=== PATIENT | male | born 1985 | race Caucasian/White ===

== ENCOUNTER 2024-01-21 08:39 | Day surgery (SDC) | payer OTHER, SELFPAY ==
[2024-01-12 08:25] VITALS: BMI 26.9
[2024-01-21] VITALS (12 sets, daily range): BP systolic 91–137; BP diastolic 41–87; PULSE 68–90; RESP 11–18; TEMP 35.7–36.9; O2SAT 97–100; BMI 26.3
--- NOTE | 2024-01-21 | DI.RAD.S_ITS ---
PROCEDURE: XR HIP W PEL IF DONE BILAT 2V INDICATIONS: RT ANTERIOR HIP TECHNIQUE: AP pelvis and lateral view of the hip acquired. COMPARISON: [facility], CR, XR HIP W PEL IF DONE LT 2V, 01/21/2024, 13:43. FINDINGS: Bones: Patient is status post bilateral hip arthroplasty, with hardware components in expected positions. The hip joint appears congruent. The visualized bony structures appear intact. Soft tissues: Overlying postoperative changes are noted. No suspicious soft tissue densities. IMPRESSION: Postop changes from bilateral total hip arthroplasty with anatomic bilateral hip alignment. Dictated by: Omar Perez M.D. on 01/21/2024 at 16:09 Approved by: Omar Perez M.D. on 01/21/2024 at 16:10
--- NOTE | 2024-01-21 | DI.RAD.S_ITS ---
PROCEDURE: XR HIP W PEL IF DONE LT 2V INDICATIONS: LT HIP ANTERIOR TECHNIQUE: 5 intraoperative fluoroscopic view(s) of the hip acquired. COMPARISON: [facility], , XR HIP W PEL IF DONE LT 2V, 01/21/2024, 12:24. FINDINGS: Intraoperative fluoroscopic images shows left total hip arthroplasty in progress. There is also prior right total hip arthroplasty. IMPRESSION: Fluoro guidance was provided intraoperatively for left total hip arthroplasty. Dictated by: Omar Perez M.D. on 01/21/2024 at 16:08 Approved by: Omar Perez M.D. on 01/21/2024 at 16:09
--- NOTE | 2024-01-21 06:00 | DI.RAD.S_ITS ---
PROCEDURE: XR HIP W PEL IF DONE LT 2V INDICATIONS: Bilat. KIMBERLY TECHNIQUE: 5 intraoperative fluoroscopic images COMPARISON: None. FINDINGS: Five intraoperative fluoroscopic images demonstrate right total hip arthroplasty hardware. Limited views demonstrate anatomic alignment. Please see operative report for details. IMPRESSION: Five intraoperative fluoroscopic images demonstrate right total hip arthroplasty hardware. Please see operative report for details. Dictated by: Jolanta Cho M.D. on 01/21/2024 at 15:09 Approved by: Jolanta Cho M.D. on 01/21/2024 at 15:10
--- NOTE | 2024-01-21 09:48 | PM.PREOP ---
Pre-operative Note Interval Note History & Physical reviewed/Exam performed by Physician: Yes Changes to H&P: No
[2024-01-21] MEDS: LACTATED RINGERS 1,000 ML 42 ML IV ×3 (10:01→13:59)
[2024-01-21] MEDS: MELOXICAM 7.5 MG TABLET PO (10:01)
[2024-01-21] MEDS: ACETAMINOPHEN 325 MG TABLET 975 MG PO (10:01)
[2024-01-21] MEDS: VANCOMYCIN 1,000 MG/200 ML PIGGYBACK 200 MG IV (10:02)
--- NOTE | 2024-01-21 10:30 | SUR.OPER ---
Supine on padded [place] table with bilateral legs secured in padded positioning boots and suspended in positioning spars, operative leg in traction per surgeon. Head on one pillow. Arms secured on padded armboards <90 degrees abduction. Padded perineal post in place per surgeon.
[2024-01-21] MEDS: CEFAZOLIN 2 GM/100 ML PREMIX 100 ML IV ×2 (11:12→20:07)
[2024-01-21] MEDS: TRANEXAMIC ACID 1,000 MG VIAL 2000 MG INJ (11:36)
[2024-01-21] MEDS: ROPIVACAINE/EPI/CLONIDINE/KET 50 ML SYRINGE INJ (11:37)
[2024-01-21] MEDS: SODIUM CHLORIDE 0.9% IV (11:42)
[2024-01-21] MEDS: HEPARIN IV (11:42)
--- NOTE | 2024-01-21 14:37 | PM.OP.1 ---
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 Uncemented direct anterior right total hip arthroplasty 2. Uncemented direct anterior left total hip arthroplasty Same procedure as scheduled: Yes Surgeon: Solo Scanlon Candy Vendor: Alex Jacobson Anesthesia Type: General, Spinal and Local Operative Notes Estimated Blood Loss (mL): 450 Procedure in detail: Bilateral Uncemented Direct Anterior Total Hip Arthroplasty: Right Implants: Right Depuy Total Hip Arthroplasty: Depuy Gunter Gription size 60 cup? Depuy Actis femoral stem size 8 high offset? 36+ 8.5 ceramic femoral head? Left Implants: Left Depuy Total Hip Arthroplasty: Depuy Gunter Gription size 60 cup? Depuy Actis femoral stem size 8 high offset? 36+ 8.5 ceramic femoral head? Procedure Summary: This 38-year-old male patient presented with severe hip pain bilaterally. He had dysplastic changes bilaterally which were more severe on the right than the left. 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 He would previously undergone a core decompression on that side. He was counseled regarding the risks and benefits of elective total hip arthroplasty and wished to proceed. 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 In order to accommodate a simultaneous bilateral procedure cell Saver was utilized during today's procedure. He reported that his right hip was more severely symptomatic than his left so we proceeded with that side 1st and counseled him regarding the possibility that I was only able to complete 1 side during today's procedure. Given his very muscular body habitus I released his TFL fascia off of the pelvis during the approach. On his acetabular side I reamed under fluoroscopy to medialize the cup without elevating the hip center and then reamed further an anatomic position once I had reamed down to the floor. I placed a lateralized liner given the reaming depth I had utilized to accommodate his dysplasia. I was able to achieve an appropriate broaching position without released and the conjoined tendon. I broached up to a size 8 which was the templated broach size. I utilized a high offset neck and initially a +1.5 trial head. There was instability with manual external rotation with that +1.5 head so I upsized to a +5 head. This had appropriate stability but appeared to be slightly short relative to the contralateral side. Desiring to slightly lengthen the right side before proceeding with the left side I therefore upsized to a +8.5 ceramic femoral head while implanting the final construct. We had utilized a bilateral hip drape to accommodate both procedures without needing to break down the drapes. We did bring up all new disposable instruments. On the 2nd side, I noted a very large unstable cartilage flap in the area of AVN. I again reamed under fluoroscopy and matched the hip center and reaming depth to the right side. I then placed the same +4 lateralized liner as well as the same femoral trial implants. Trialing on the 2nd side revealed equal leg length and offset as compared to the right side. Stability was excellent on both sides as I was unable to manually dislocate the hip with maximum external rotation through the foot. Procedure in Detail: This patient was seen preoperatively and evaluated for hip pain which was refractory to numerous nonoperative treatment modalities. Their hip pain correlated with radiographic changes demonstrating significant degeneration in the hip joint. The risks and benefits of continued nonoperative management versus operative management were discussed at length and all of the patient?s questions were answered. Additional educational materials providing further details beyond our discussion in clinic were provided via a publicly available patient education video which included the incidence of medical complications associated with total hip arthroplasty, reasons for revision following total hip arthroplasty, and patient satisfaction rates following total hip arthroplasty. That video can be accessed at [email or web address] . With this understanding of the risks inherent to the procedure, the patient elected to move forward with operative management. Following preoperative optimization, the patient was scheduled for surgery. The patient was met in the preoperative holding area the day of the procedure and all questions were answered. The patient?s nares were swabbed with betadine in order to decolonize them from MRSA. Informed consent was signed and the operative limb was marked with indelible ink.? The patient was brought back to the operating room where anesthesia was induced. The patient was transferred to the [place] table and all bony prominences were padded. The operative site was prepped and draped in the usual sterile fashion. Prior to incision, tranexamic acid and cefazolin were administered. Operative templating images were displayed demonstrating the anticipated implant sizes and correct operative extremity. A timeout procedure was performed verifying the patient?s identity, medical comorbidities, allergies, relevant medications, anesthesia type and the surgical plan. All present were in agreement. The assistance of a physician junior sales assistant was required for positioning, room setup, soft tissue retraction and wound closure. Without this assistance, the procedure would have been significantly more challenging and time consuming.?? 1. Right Side A direct anterior approach to the hip was utilized. This was performed with a longitudinal incision through a Heuter interval. The incision was planned 2 cm distal and 2 cm lateral to the ASIS extending towards the lateral patella, in line with the muscle body of the TFL. Following incision, the subcutaneous tissue was dissected while taking care to avoid injury to the lateral femoral cutaneous nerve. The fascia overlying the TFL was identified by dissecting off the overlying fat and identifying perforating vessels to the TFL. The TFL fascia was incised and dissected away from the medial border of the TFL. During this process I noted that the TFL muscle body was very adherent to the fascia and did not easily peel away. A cobra retractor was placed over the superior femoral neck between the abductors and the hip capsule and used to reflect the TFL laterally. A Marsland self-retainer was then placed in the distal aspect of the wound between the TFL and the rectus femoris. This was tensioned to open up the direct anterior interval and the lateral circumflex vessels were identified and coagulated using electrocautery. The floor of the TFL fascia was incised, exposing the pericapsular fat overlying the hip capsule. A second cobra retractor was placed on the inferior femoral neck. A double-bent soft tissue retractor was placed on the anterior wall of the acetabulum and used to tension the reflected head of rectus femoris, which was then released in order to limit soft tissue tension. A capsulotomy was made in the midline of the anterior hip capsule in line with the femoral neck ending at the vastus tubercle. The double-bent retractor was removed in order to limit the amount of time that a soft tissue retractor remained on the anterior wall and protect the femoral nerve. Tag stitches were placed in the superior and inferior leaflets of the hip capsule. An Raúl soft tissue retractor was introduced over the tag stitches and tensioned in the interval between the rectus femoris and the TFL in order to retract and protect those muscles. The cobra retractors were replaced intracapsularly, with one over the superior neck in the pocket created by the base of the greater trochanter and the other on the femoral head. The capsulotomy was extended laterally to the base of the greater trochanter and medially to the lesser trochanter. This required externally rotating the hip. Once the lesser trochanter had been identified, a neck cut was planned according to measurements from preoperative templating. A ruler was cut at the length measured between the superior aspect of the lesser trochanter and the collar of the prosthesis. This line was extended towards the inferior aspect of the lateral cobra retractor to plan a cut which would leave minimal residual femoral neck laterally. The neck was cut at 60 degrees of external rotation along that line. A second cut was performed to remove a large napkin ring and facilitate head extraction. The napkin ring cut and femoral head were removed.?? A broad anterior wall retractor was placed between the labrum and the anterior capsule so that the anterior capsule would prevent capturing and pinching the femoral nerve anteriorly. An additional retractor was placed on the posterior wall. External rotation and traction were applied through the [place] table so that the cut surface of the femoral neck would not restrict access to the acetabulum. The labrum was excised sharply and the pulvinar was excised with electrocautery to limit bleeding from branches of the obturator artery. Acetabular reamers were selected based on preoperative templating and measurements of the excised femoral head. These were introduced into the acetabulum. Fluoroscopy was utilized to replicate a standing AP pelvis radiograph by centering over the pelvis, rotating until there was appropriate symmetry between the obturator foramen, and introducing caudal tilt to match the position of the pubic symphysis relative to the sacrococcygeal junction according to the patient?s anatomy. Fluoroscopy was utilized to ensure appropriate reaming depth, initially medializing the reamer given the patient's dysplastic acetabulum. Once satisfied with the reaming depth corresponding to the preoperative template and the pinch fit between the columns, an appropriate sized acetabular cup was selected which would provide 1 mm of press-fit. This cup was introduced and manipulated until appropriate abduction and anteversion angles were obtained with careful attention to appropriate abduction and anteversion angles as evaluated by the position of the cup relative to the anterior and posterior bermudez of the acetabulum and the AP fluoroscopy which recreated the patient?s standing radiograph. The cup was impacted into place. Peripheral osteophytes were removed. The acetabular liner was then placed with care to ensure locking of the locking mechanism.? Attention was then turned to the femur. All retractors were removed, traction was released, a retractor was placed in the interval between the hip capsule and the gluteus minimus, and the hip was externally rotated to 90 degrees. Traction was applied through the [place] table to tension the lateral capsule and this was released using electrocautery. Traction was released and a [place] hook was placed posteriorly around the proximal femur at the level of the vastus ridge. The table height was lowered in order to restrict the tension on the anterior structures during hip hyperextension to limit the risk of femoral nerve palsy. With traction off and the hip at 90 degrees of external rotation, the hip was hyperextended and adducted while manually elevating the femur away from the acetabulum with the [place] hook to ensure it would not be caught behind the greater trochanter. An asymmetric retractor was placed over the calcar and a broad double-pronged retractor was placed over the greater trochanter. The tag stitch capturing the lateral leaflet of the capsule was moved to the medial side, leaving the conjoined and piriformis tendons isolated in the face of the greater trochanter. The hip was externally rotated and elevated. A release of the conjoined tendon was not necessary in order to obtain adequate exposure for broaching. The canal was opened with an opening broach and a rasp was used to remove cancellous bone. A rongeur was used to remove the residual lateral bone at the base of the greater trochanter to avoid placing the stem in varus. The femur was then broached to the appropriate sized stem yielding good rotational fit and fill of the canal as well as appropriate version of the stem trial. Neck and head trials were placed, all retractors were removed and the hip was returned to neutral abduction and extension. I then reduced the hip. An AP pelvis fluoroscopic image matching the preoperative standing radiograph was obtained with both lesser trochanters visible and both hips in 40 degrees of external rotation. This demonstrated that the operative side was still slightly short relative to the left side with a +5 trial head . An AP hip fluoroscopic image was obtained with the hip in neutral rotation which demonstrated appropriate canal fill of the broach. Hip stability was evaluated with maximum external rotation and a 45 degree drop test which demonstrated no instability. The hip was dislocated and I returned to the broaching position. The definitive stem was placed and the trunnion was cleaned and dried. I placed a +8.5 ceramic head onto the trunnion and impacted it into place on the [place] taper.?? All retractors were removed and the hip was reduced. A dilute mixture of betadine and peroxide was used to bathe the soft tissues during final fluoroscopic assessment. Appropriate component positioning was confirmed on an AP pelvis radiograph with the operative and nonoperative legs in 40 degrees of external rotation, evaluating leg length and offset. Appropriate stem fill was evaluated on an AP hip radiograph with the operative leg in neutral rotation. No fractures were identified on these radiographs. Stability was satisfactory with a maximum external rotation test as well as a 45 degree drop test. The hip was copiously irrigated with pulse lavage. The capsule was closed with absorbable interrupted suture. The TFL fascia was closed with barbed suture while carefully protecting the lateral femoral cutaneous nerve from entrapment. A mixture of Ropivacaine, Epinephrine, Clonidine and Toradol was infiltrated throughout the soft tissues. The skin was closed with 2-0 and 3-0 sutures. Surgical glue was applied and a soft dressing was placed.?? 1. Left Side A direct anterior approach to the hip was utilized. This was performed with a longitudinal incision through a Heuter interval. The incision was planned 2 cm distal and 2 cm lateral to the ASIS extending towards the lateral patella, in line with the muscle body of the TFL. Following incision, the subcutaneous tissue was dissected while taking care to avoid injury to the lateral femoral cutaneous nerve. The fascia overlying the TFL was identified by dissecting off the overlying fat and identifying perforating vessels to the TFL. The TFL fascia was incised and dissected away from the medial border of the TFL. The TFL muscle body was not as adherent to the fascia as the other side had been. A cobra retractor was placed over the superior femoral neck between the abductors and the hip capsule and used to reflect the TFL laterally. A Marsland self-retainer was then placed in the distal aspect of the wound between the TFL and the rectus femoris. This was tensioned to open up the direct anterior interval and the lateral circumflex vessels were identified and coagulated using electrocautery. The floor of the TFL fascia was incised, exposing the pericapsular fat overlying the hip capsule. A second cobra retractor was placed on the inferior femoral neck. A double-bent soft tissue retractor was placed on the anterior wall of the acetabulum and used to tension the reflected head of rectus femoris, which was then released in order to limit soft tissue tension. A capsulotomy was made in the midline of the anterior hip capsule in line with the femoral neck ending at the vastus tubercle. The double-bent retractor was removed in order to limit the amount of time that a soft tissue retractor remained on the anterior wall and protect the femoral nerve. Tag stitches were placed in the superior and inferior leaflets of the hip capsule. An Raúl soft tissue retractor was introduced over the tag stitches and tensioned in the interval between the rectus femoris and the TFL in order to retract and protect those muscles. The cobra retractors were replaced intracapsularly, with one over the superior neck in the pocket created by the base of the greater trochanter and the other on the femoral head. The capsulotomy was extended laterally to the base of the greater trochanter and medially to the lesser trochanter. This required externally rotating the hip. Once the lesser trochanter had been identified, a neck cut was planned according to measurements from preoperative templating. A ruler was cut at the length measured between the superior aspect of the lesser trochanter and the collar of the prosthesis. This line was extended towards the inferior aspect of the lateral cobra retractor to plan a cut which would leave minimal residual femoral neck laterally. The neck was cut at 60 degrees of external rotation along that line. A second cut was performed to remove a large napkin ring and facilitate head extraction. The napkin ring cut and femoral head were removed.?? A broad anterior wall retractor was placed between the labrum and the anterior capsule so that the anterior capsule would prevent capturing and pinching the femoral nerve anteriorly. An additional retractor was placed on the posterior wall. External rotation and traction were applied through the [place] table so that the cut surface of the femoral neck would not restrict access to the acetabulum. The labrum was excised sharply and the pulvinar was excised with electrocautery to limit bleeding from branches of the obturator artery. Acetabular reamers were selected based on preoperative templating and measurements of the excised femoral head. These were introduced into the acetabulum. Fluoroscopy was utilized to replicate a standing AP pelvis radiograph by centering over the pelvis, rotating until there was appropriate symmetry between the obturator foramen, and introducing caudal tilt to match the position of the pubic symphysis relative to the sacrococcygeal junction according to the patient?s anatomy. Fluoroscopy was utilized to ensure appropriate reaming depth, initially medializing the reamer given the patient's dysplastic acetabulum. Once satisfied with the reaming depth corresponding to the preoperative template and the pinch fit between the columns, an appropriate sized acetabular cup was selected which would provide 1 mm of press-fit. This cup was introduced and manipulated until appropriate abduction and anteversion angles were obtained with careful attention to appropriate abduction and anteversion angles as evaluated by the position of the cup relative to the anterior and posterior bermudez of the acetabulum and the AP fluoroscopy which recreated the patient?s standing radiograph. The cup was impacted into place. Peripheral osteophytes were removed. The acetabular liner was then placed with care to ensure locking of the locking mechanism.? Attention was then turned to the femur. All retractors were removed, traction was released, a retractor was placed in the interval between the hip capsule and the gluteus minimus, and the hip was externally rotated to 90 degrees. Traction was applied through the [place] table to tension the lateral capsule and this was released using electrocautery. Traction was released and a [place] hook was placed posteriorly around the proximal femur at the level of the vastus ridge. The table height was lowered in order to restrict the tension on the anterior structures during hip hyperextension to limit the risk of femoral nerve palsy. With traction off and the hip at 90 degrees of external rotation, the hip was hyperextended and adducted while manually elevating the femur away from the acetabulum with the [place] hook to ensure it would not be caught behind the greater trochanter. An asymmetric retractor was placed over the calcar and a broad double-pronged retractor was placed over the greater trochanter. The tag stitch capturing the lateral leaflet of the capsule was moved to the medial side, leaving the conjoined and piriformis tendons isolated in the face of the greater trochanter. The hip was externally rotated and elevated. A release of the conjoined tendon was not necessary in order to obtain adequate exposure for broaching. The canal was opened with an opening broach and a rasp was used to remove cancellous bone. A rongeur was used to remove the residual lateral bone at the base of the greater trochanter to avoid placing the stem in varus. The femur was then broached to the appropriate sized stem yielding good rotational fit and fill of the canal as well as appropriate version of the stem trial. Neck and head trials were placed, all retractors were removed and the hip was returned to neutral abduction and extension. I then reduced the hip. An AP pelvis fluoroscopic image matching the preoperative standing radiograph was obtained with both lesser trochanters visible and both hips in 40 degrees of external rotation. This demonstrated equal leg lengths with a +8.5 trial head to match the other side. An AP hip fluoroscopic image was obtained with the hip in neutral rotation which demonstrated appropriate canal fill of the broach. Hip stability was evaluated with maximum external rotation and a 45 degree drop test which demonstrated no instability. The hip was dislocated and I returned to the broaching position. The definitive stem was placed and the trunnion was cleaned and dried. I placed a +8.5 ceramic head onto the trunnion and impacted it into place on the [place] taper.?? All retractors were removed and the hip was reduced. A dilute mixture of betadine and peroxide was used to bathe the soft tissues during final fluoroscopic assessment. Appropriate component positioning was confirmed on an AP pelvis radiograph with the operative and nonoperative legs in 40 degrees of external rotation, evaluating leg length and offset. Appropriate stem fill was evaluated on an AP hip radiograph with the operative leg in neutral rotation. No fractures were identified on these radiographs. Stability was satisfactory with a maximum external rotation test as well as a 45 degree drop test. The hip was copiously irrigated with pulse lavage. The capsule was closed with absorbable interrupted suture. The TFL fascia was closed with barbed suture while carefully protecting the lateral femoral cutaneous nerve from entrapment. A mixture of Ropivacaine, Epinephrine, Clonidine and Toradol was infiltrated throughout the soft tissues. The skin was closed with 2-0 and 3-0 sutures. Surgical glue was applied and a soft dressing was placed.?? The sponge, instrument and needle counts were reported as being correct at the end of the case.??No obvious complications occurred. The patient was transferred from the [place] table back to a stretcher. The patient emerged from anesthesia without difficulty and was taken to the PACU in a stable condition.? Plan for aftercare: Anterior hip precautions Weightbearing as tolerated Mobilization as soon as the patient has recovered from anesthesia. If physical therapists are unavailable at the time the patient is ready to ambulate, then nursing staff should help patient ambulate Aspirin 81 twice per day for DVT prophylaxis Multimodal pain regimen with no IV opioids ordered Anticipate discharge home tomorrow Follow up at [facility] in 2 weeks Detailed postoperative instructions available at [email or web address]
--- NOTE | 2024-01-21 16:03 | PC.NURSE ---
Addendum entered by Romy Gutierrez R.N. 01/21/24 16:35: Patient is tolerating his autologous blood transfusion at 100cc/hr. His blood pressure is 91/49 and he denies any dizziness or syncopal feelings. Will be giving patient some tylenol and ibuprofen soon and after his blood is infused, he will get some LR infusion. Original Note: Patient has his own autologus blood infusing in him at 100cc/hr. He came up to the floor with this infusing. He is tolerating well. Patient had bilateral anterior hip replacements and he has aquacel dressings on each anterior hip. Dressings are all cdi and he has a continuous ice maching on his hips. is at bedside and patient denies any pain at this time.
[2024-01-21] MEDS: LACTATED RINGERS 1,000 ML 100 ML IV (17:00)
[2024-01-21] MEDS: IBUPROFEN 600 MG TABLET PO ×2 (17:05→22:02)
[2024-01-21] MEDS: ACETAMINOPHEN 325 MG TABLET 650 MG PO ×2 (17:05→22:03)
[2024-01-21] MEDS: ASPIRIN EC 81 MG TABLET PO (20:08)
[2024-01-21] MEDS: CELECOXIB 200 MG CAPSULE PO (20:08)
[2024-01-21] MEDS: DOCUSATE 100 MG CAPSULE PO (20:08)
[2024-01-22] VITALS: BP 95/58; PULSE 82; RESP 17; TEMP 36.1; O2SAT 99
[2024-01-22] MEDS: ACETAMINOPHEN 325 MG TABLET 650 MG PO ×3 (02:29→15:32)
[2024-01-22] MEDS: OXYCODONE IR 5 MG TABLET PO ×3 (02:29→11:22)
[2024-01-22] MEDS: IBUPROFEN 600 MG TABLET PO (02:30)
[2024-01-22 04:00] VITALS: BP 108/62; PULSE 84; RESP 16; TEMP 36.3; O2SAT 99
[2024-01-22] MEDS: CEFAZOLIN 2 GM/100 ML PREMIX 100 ML IV (04:21)
[2024-01-22 06:05] LABS: Hematocrit 37.4 % (41-53); Hemoglobin 12.8 g/dL (13.5-17.5)
[2024-01-22 08:55] VITALS: BP 114/62; PULSE 73; RESP 18; TEMP 36.6; O2SAT 99
--- NOTE | 2024-01-22 09:50 | PM.DS.1 ---
History of Present Illness History of Present Illness Chief complaint: Pastor KIMBERLY *OPB* Narrative: Bishop is a pleasant 38-year-old male who is pod #1 s/p bilateral total hip arthroplasties, anterior approach by Dr. Capo rosario on 01/21/2024. Patient reports he is doing well overall, has been able to get up use the restroom on his own with the use of a walker several times. Urinating well without issue. Pain is rated as moderate and well controlled with oral pain medication. Has post-op medications at home already. Has PT appts set up with [facility] in [place]. Has ice machine at home for additional pain control. Lives at home with who is willing and able to aid in his post-op recovery. Denies fever, chills, chest pain, SOB, nausea, vomiting. 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 Uncemented direct anterior right total hip arthroplasty 2. Uncemented direct anterior left total hip arthroplasty Same procedure as scheduled: Yes Surgeon: Solo Scanlon Resource Development Manager: Alex Jacobson Anesthesia Type: General, Spinal and Local Operative Notes Estimated Blood Loss (mL): 450 Right Implants: Right Depuy Total Hip Arthroplasty: Depuy Graford Gription size 60 cup? Depuy Actis femoral stem size 8 high offset? 36+ 8.5 ceramic femoral head?Left Implants: Left Depuy Total Hip Arthroplasty: Depuy Graford Gription size 60 cup? Depuy Actis femoral stem size 8 high offset? 36+ 8.5 ceramic femoral head? Discharge Providers Provider Discharge Date: 01/22/24 Primary care physician: Shemar Alvarado MD Consults: 01/21/24 06:00 Consult to Anesthesiology Routine Comment: Consulting Provider: Anesthesiologist Reason for consultation: Regional block for post operative pain control 01/21/24 15:43 Consult to Discharge Planning Routine Comment: Consult to Occupational Therapy Evaluate & Treat Comment: Physician Instructions: Evaluate and treat Consult to Physical Therapy Evaluate & Treat Comment: Physician Instructions: post op KIMBERLY protocol Discharge provider: Kiara Wallace PA-C Summary Hospital Course Discharge Diagnosis: s/p Hospital Course: Hospital course complicated by hypotension immediately post-op, likely secondary to blood loss, he received autologus blood transfusion and is now stable. Exam Vital Signs (past 8 hours): - 01/22/24 04:00 01/22/24 08:55 Temperature 97.3 F L 97.9 F Pulse Rate 84 73 Respiratory Rate 16 18 Blood Pressure 108/62 114/62 Pulse Oximetry 99 99 Oxygen Flow Rate 0 0 Oxygen Delivery Method Room Air Oxygen Flow Rate 0 Narrative Exam Narrative: Lying in bedside chair comfortably during our interview today, at bedside. Resp Effort & Inspection: normal respiratory effort and able to speak in complete sentences Cardio Rate: regular rate Other: Extremities appear well perfused, brisk capillary refill, pulses intact. Skin Other: Bilateral anterior hip Aquacel dressings clean, dry and intact. No drainage. No surrounding ecchymosis. Neuro General: patient alert, patient awake and patient oriented x3 Other: 5/5 strength with DF, PF, EHL, knee flexion and extension. Gross sensation intact throughout bilateral lower extremities. Extrem Other: Calves soft and non-tender bilaterally. Psych Appearance: grossly normal Mental Status: mental status grossly normal Speech and Movement: speech and movement normal Objective Labs 01/22/24 05:15 Labs: Laboratory Results - last 24 hr 01/21/24 01/22/24 09:30 05:15 Hgb 12.8 L Hct 37.4 L Blood Type O Negative Antibody Screen Negative Crossmatch See Detail [facility] Medical History BOOGIE on CPAP Osteoarthritis Arthritis Avascular necrosis of left femur Pure hypercholesterolemia Abnormal results of liver function studies ADHD (attention deficit hyperactivity disorder), combined type Surgical History (Updated 01/12/24 @ 09:12 by Dary Dunham RN) History of hip surgery (~2019) Hx of [facility] Social History household members: spouse Smoking Status: Never smoker alcohol intake: current Discharge Assessment & Plan Assessment and Plan Assessment: Stable status post bilateral total hip arthroplasties, anterior approach. Plan of Treatment: 1) Plan to discharge to home with today pending PT evaluation. 2) Continue multimodal pain management with ice to the hips for additional pain control. Patient has already received/picked up his post-op prescriptions. 3) ASA b.i.d. for DVT prophylaxis. 4) Start outpatient physical therapy to work on range of motion and mobility. Weight bearing as tolerated, maintain anterior hip precautions. 5) Keep dressing intact, clean, dry until 2 week postop appointment. No soaking the incision site in pools or tubs. No topical ointments or creams to the incision site. 5) Follow up at [facility] in 2 weeks for a postop appointment and wound check. All of patient questions were answered and he is in agreement with the treatment plan. Call our office if any questions or concerns arise. Discharge Plan Discharge Plan Patient Disposition: Home Provider Discharge Comment: [email or web address] Discharge orders & Medications Discharge Orders: Discharge (Order); Ordered 01/22/24 Ordered By: Kiara Wallace Prescriptions: New oxycodone 5 mg Tablet 5 mg PO Q4-6H PRN (Reason: Pain, Moderate (4-6)) Qty: 30 0RF ondansetron 4 mg Tablet,Disintegrating 4 mg PO Q4HR PRN (Reason: Nausea) Qty: 10 0RF docusate sodium 100 mg Capsule 100 mg PO BID PRN (Reason: constipation) Qty: 30 0RF aspirin 81 mg Tablet,Delayed Release (Dr/Ec) 81 mg PO BID Qty: 90 0RF acetaminophen 500 mg tablet 1,000 mg PO Q8HR Qty: 30 0RF Continued methylphenidate HCl 54 mg Tablet Extended Release 24hr 54 mg PO DAILY Patient Comments: Pt holding x 1 week for surgery on his own celecoxib [Celebrex] 200 mg Capsule 200 mg PO BID Discontinued hydrocodone-acetaminophen 5-325 mg Tablet 1 tab PO BID PRN (Reason: Pain) oxycodone-acetaminophen 5-325 mg Tablet 2 tab PO BEDTIME ibuprofen 200 mg Tablet 400 mg PO TID Follow up/Referrals: Solo Scanlon MD [Physician] - (Follow up as scheduled at [facility] in 2 weeks. (02/04/24 at 1:30pm with JACK Goodrich)) Shemar Alvarado MD [Primary Care Provider] - Diet/Activity/Treatments Diet: Diet as Tolerated Activity: Weight bearing as tolerated, maintain anterior hip precautions. Cold/Heat Therapy: Ice to the hip for additional pain control Skin/Wound/Dressing Care Report to your healthcare provider any signs of infection, such as:: chills, fever, night sweats, unusual drainage and unusual redness Dressing: Keep dressing intact, clean and dry until 2 week post-op appointment. No soaking the incision site in pools or tubs, no topical ointments or creams to the incision site. Visit Report/Discharge Packet Instructions: DI for Hip Replacement, DI for Prescription Opioid Use Stand Alone Forms: Patient Portal/API Discharge Data Primary Care Provider: Shemar Alvarado Attending Provider: Solo Scanlon VTE Deep Vein Thrombosis/Pulmonary Embolism Present on Admission: No
[2024-01-22] MEDS: DOCUSATE 100 MG CAPSULE PO (10:05)
[2024-01-22] MEDS: ASPIRIN EC 81 MG TABLET PO (10:06)
[2024-01-22] MEDS: CELECOXIB 200 MG CAPSULE PO (10:06)
--- NOTE | 2024-01-22 10:25 | PT.IIE ---
Current Diagnoses Bilateral primary osteoarthritis of hip (01/21/24) Surgery Performed Operation Date: 01/21/24 10:45 Actual Procedures p BILATERAL Total Hip Arthroplasty/Anterior Approach(Bilateral) - Solo Scanlon MD Surgical History (Last Updated 01/12/24 @ 09:12 by Dary Dunham, RN) History of hip surgery (~2019) Hx of LASIK Medical History (Last Reviewed 01/21/24 @ 09:32 by Martina Nelson, LIVAN) Abnormal results of liver function studies ADHD (attention deficit hyperactivity disorder), combined type Arthritis Avascular necrosis of left femur BOOGIE on CPAP Osteoarthritis Pure hypercholesterolemia Physical Therapy Inpatient Evaluation/Re-Eval M1 PT/OT-IP Prior Functional Status Start: 01/22/24 12:33 Freq: NEEDED Status: Active Protocol: Document 01/22/24 10:25 AB (Rec: 01/22/24 12:48 AB [id number]) Medical Review Prior Functional Status Medical History Reviewed No Communication able to make needs known Mobility and Gait pt stated that he was independent with all mobiltiies and ambulation without AD Social History Household Members spouse Living Arrangements House Number of Floors (Floors) One Floor Number of Stairs To Enter/Railing? 3 steps without rails to enter Home Environment Standard Height Toilet,Walk in Shower Home Equipment Front Wheel Walker,Straight Cane,Bedside Commode,Raised Toilet Seat w/Armrests,Shower Seat without Backrest,Hand Held Shower Employment Status Supervisor Education Employed Additional Social History Comment pt has an adjustable bed pt works as a johnson for a [employer] M2 PT-IP Current Condition Start: 01/22/24 12:33 Freq: NEEDED Status: Active Protocol: Document 01/22/24 10:25 AB (Rec: 01/22/24 12:48 AB [id number]) Physical Therapy Current Condition Current Condition Evaluation Date 01/22/24 Treatment Diagnosis s/p B KIMBERLY anterior; difficulty in walking Onset Date 01/21/24 M3 PT-IP Subjective Start: 01/22/24 12:33 Freq: NEEDED Status: Active Protocol: Document 01/22/24 10:25 AB (Rec: 01/22/24 12:48 AB [id number]) Subjective Physical Therapy Visit Type Type Initial Evaluation Visit Start Time 10:25 Visit Stop Time 11:10 Number of SPLICER HELPER Visits 0 Physical Therapy Visit Comments Patient Comments agreeable to do PT Therapy Pain Assessment Pain When Pain Assessed At Rest Pain Present Pain Present Pain Reported Location Left Hip Intensity 2 Scale Used Numeric (0 - 10) Pain Management Techniques Distraction,Modification of Treatment,Re-positioning, Timing of Activity with Medications Right Hip Intensity 3 Scale Used Numeric (0 - 10) Pain Management Techniques Distraction,Modification of Treatment,Re-positioning, Timing of Activity with Medications M4 PT-IP Mobility and Gait Start: 01/22/24 12:33 Freq: NEEDED Status: Active Protocol: Document 01/22/24 10:25 AB (Rec: 01/22/24 12:48 AB [id number]) PT-Bed Mobility Assessment Supine to Sit Supine to Sit Standby Assistance Sit to Supine Sit to Supine Standby Assistance PT-Transfer Assessment Sit to and From Stand Sit to and from Stand Standby Assistance,Contact Guard Assistance Equipment Transfer Assistive Device Gait Belt Orthotic/Prosthetic Devices or Brace: Yes Transfers Transfer Destination Bed Transfer Technique ambulated Transfer Ability Level of Assist Standby Assistance Comments Mobility Comments pt sitting on the chair. spouse in room. obtained PLOF and home set up from pt and spouse. post-op folder provided and reviewed contents . educated pt and spouse regarding pt's hip precautions . BP in sittin/58. pt completed sit to stand CGA and heavy UE use for get up. intructed pt to sit down. educated pt regarding sit<> stand techniques and to use BLE to push up. also informed pt the he is WBAT on BLE. pt completed sit to stand again SBA to CGA and cues. pt ambulated in room ~ 30 ft using FWW SBA. pt sat on EOB. completed sit<>supine SBA. pt completed step transfer to chair using FWW SBA. educated pt regarding stair climbing techniques but c/o feeling dizzy. reclined pt on the chair. BP checked: 84/30. Nurse aware. Left pt with nurse and NAC. informed pt and spouse that PT will check back in pm and possible caregiver training and stair climbing training depending on pt's status. both agreed. BP reclined on the chair at end of PT session: 103/61 Gait Assessment Gait Gait Assistance Required: Standby Assistance Distance (Feet) 30 Able to Maintain Weight Bearing Status Yes During Gait Assistive Devices Assistive Device Gait Belt,Front Wheeled Walker Orthotic/Prosthetic Devices or Brace: No Factors Limiting Gait Function Factors Limiting Gait Function Decreased Activity Tolerance, Decreased Strength,Limited Range of Motion,Pain,Poor Balance,Poor Safety Awareness PT-Balance Assessment Sitting Balance and Reactions Static Sitting Balance Ability Normal Dynamic Sitting Balance Ability Good Standing Balance and Reactions Static Standing Balance Ability Fair Dynamic Standing Balance Ability Fair Device Used FWW M5 PT-IP Objective Assessments Start: 01/22/24 12:33 Freq: NEEDED Status: Active Protocol: Document 01/22/24 10:25 AB (Rec: 01/22/24 12:48 AB [id number]) Orientation Orientation/Cognition Level of Alertness Alert Orientation Name,Place,Situation Language Function Ability No Deficits Noted Safety Awareness Decreased Safety Awareness Memory Description No Deficits Noted Gross Range of Motion Lower Extremity ROM Assessment Within Functional Limits Strength Lower Extremity Strength Assessment Bilaterally Impaired Hip R: 3+/5 L: 4/5 Knee R: 4/5 L: 4-/5 Sensation Assessment Sensation Gross Sensation WNL Muscle Tone Muscle Tone WNL Yes M6 PT-IP Treatment Start: 01/22/24 12:33 Freq: NEEDED Status: Active Protocol: Document 01/22/24 10:25 AB (Rec: 01/22/24 12:48 AB [id number]) Physical Therapy Treatment Education Education Provided Precautions,Weight Bearing Status,Post-Op Packet,Safety M7 PT-IP Assessment and Plan Start: 01/22/24 12:33 Freq: NEEDED Status: Active Protocol: Document 01/22/24 10:25 AB (Rec: 01/22/24 12:48 AB [id number]) PT Summary Assessment and Plan Potential Rehabilitation Potential Good Status of Condition at Evaluation Evolving Summary Impairments Pain,ROM,Strength,Balance, Coordination,Sensation,Tone, Cognition,Bed Mobility, Transfers,Gait,Activity Tolerance Assessment Summary pt is a 38 y/o M s/p bilateral KIMBERLY anterior approach POD 1. pt has anterior hip precautions for BLE and is WBAT. pt requiring SBA to CGA with transfers and ambulation using FWW but unable to tolerate much activity due to c/o lightheadedness with decrease in BP: 84/30. will continue to assess progress. caregiver training and stair climbing will be conducted when appropriate prior to d/c . Goals Bed Mobility Goal Independent Transfer Goal Independent,Front Wheeled Walker Gait Goal Independent,Front Wheel Walker Gait Distance 300 Other Goals up/down 3 steps using SPC/HOLE DIGGER CGA Days to Meet Goals 5 Frequency of Treatment Frequency Of Treatment Twice a Day Treatment Plan Physical Therapy Treatment Plan Bed Mobility Training,Transfer Training,Gait Training, Therapeutic Exercise,Balance Retraining,Post Op Education, Discharge Planning,Hot or Cold Pack,Neuromuscular Re-ed, Coordination Retraining,Manual Therapy Precautions Anterior Hip Precautions No Hip Extension,No Hip External Rotation Weight Bearing Status Weight Bearing Status Weight Bear as Tolerated Allowed Weight Bearing Amount (enter % BLE WBAT or #) (%) Recommendations To Nursing Amount of Assist Needed 1 Person Assist Discharge Recommendations PT Discharge Recommendations Home with Assistance, Outpatient PT Transportation Needs at Discharge Private Vehicle
--- NOTE | 2024-01-22 13:00 | PT.IPTN ---
Current Diagnoses Bilateral primary osteoarthritis of hip (01/21/24) Surgery Performed Operation Date: 01/21/24 10:45 Actual Procedures p BILATERAL Total Hip Arthroplasty/Anterior Approach(Bilateral) - Solo Scanlon MD Physical Therapy Treatment Note M2 PT-IP Current Condition Start: 01/22/24 12:33 Freq: NEEDED Status: Active Protocol: Document 01/22/24 10:25 AB (Rec: 01/22/24 12:48 AB [id number]) Physical Therapy Current Condition Current Condition Evaluation Date 01/22/24 Treatment Diagnosis s/p B KIMBERLY anterior; difficulty in walking Onset Date 01/21/24 M3 PT-IP Subjective Start: 01/22/24 12:33 Freq: NEEDED Status: Active Protocol: Document 01/22/24 13:35 TS (Rec: 01/22/24 13:53 TS [id number]) Subjective Physical Therapy Visit Type Type Treatment Note Visit Start Time 13:00 Visit Stop Time 13:29 Notes BP: supine 137/77, sitting 120 /71, standing 115/52, sitting 86/57, supine 115/73. Number of HEEL LIFT GOUGER Visits 1 Physical Therapy Visit Comments Patient Comments Pt found resting in bed, is agreeable to PT. Therapy Pain Assessment Pain When Pain Assessed At Rest Pain Present Pain Present Pain Reported M4 PT-IP Mobility and Gait Start: 01/22/24 12:33 Freq: NEEDED Status: Active Protocol: Document 01/22/24 13:35 TS (Rec: 01/22/24 13:53 TS [id number]) PT-Bed Mobility Assessment Supine to Sit Supine to Sit Standby Assistance Sit to Supine Sit to Supine Standby Assistance Scooting Scooting to Edge of Bed Standby Assistance Scooting Up and Down in Bed Standby Assistance PT-Transfer Assessment Sit to and From Stand Sit to and from Stand Standby Assistance Equipment Transfer Assistive Device Gait Belt,Front Wheeled Walker Orthotic/Prosthetic Devices or Brace: No Comments Mobility Comments BP in supine 137/77. Supine to sit SBA with BUE support from flat bed, pt demonstrates good carryover. BP in sitting 120/71, pt denied any dizziness. STS from bed SBA with FWW, pt reports almost full wbering on LE's. BP in standing 115/52, pt agreed to ambulate. Pt ambulated SBA with FWW step to step. He performed stairs x3 with COUNTER INTELLIGENCE from spouse and therapist CGA with cues for sequencing. Pt began to report increase in lightheadedness and required to sit on EOB, BP in stting 86 /57. Sit to supine SBA, BP 115 /73. Pt was left in bed, RN notified. Gait Assessment Gait Gait Assistance Required: Standby Assistance Distance (Feet) 60 Able to Maintain Weight Bearing Status Yes During Gait Assistive Devices Assistive Device Gait Belt,Front Wheeled Walker Orthotic/Prosthetic Devices or Brace: No Factors Limiting Gait Function Factors Limiting Gait Function Decreased Activity Tolerance, Decreased Strength,Limited Range of Motion,Pain,Poor Balance,Poor Safety Awareness Comments Gait Comments See mobility comments Stair Climbing Assessment Evaluation Level of Assist On Stairs Contact Guard Assistance,1 Person Assistance Devices Stair Climbing Assistive Devices Front Wheel Walker Technique/Endurance Stair Climbing Direction Ascend and Descend Stair Climbing Technique Step to Step Number of Steps Climbed 3 Comments Stair Climbing Comments See mobility comments PT-Balance Assessment Sitting Balance and Reactions Static Sitting Balance Ability Normal Dynamic Sitting Balance Ability Good Standing Balance and Reactions Static Standing Balance Ability Fair Dynamic Standing Balance Ability Fair Device Used FWW M5 PT-IP Objective Assessments Start: 01/22/24 12:33 Freq: NEEDED Status: Active Protocol: Document 01/22/24 10:25 AB (Rec: 01/22/24 12:48 AB [id number]) Orientation Orientation/Cognition Level of Alertness Alert Orientation Name,Place,Situation Language Function Ability No Deficits Noted Safety Awareness Decreased Safety Awareness Memory Description No Deficits Noted Gross Range of Motion Lower Extremity ROM Assessment Within Functional Limits Strength Lower Extremity Strength Assessment Bilaterally Impaired Hip R: 3+/5 L: 4/5 Knee R: 4/5 L: 4-/5 Sensation Assessment Sensation Gross Sensation WNL Muscle Tone Muscle Tone WNL Yes M6 PT-IP Treatment Start: 01/22/24 12:33 Freq: NEEDED Status: Active Protocol: Document 01/22/24 13:35 TS (Rec: 01/22/24 13:53 TS [id number]) Physical Therapy Treatment Education Education Provided Precautions,Weight Bearing Status,Post-Op Packet,Safety M7 PT-IP Assessment and Plan Start: 01/22/24 12:33 Freq: NEEDED Status: Active Protocol: Document 01/22/24 13:35 TS (Rec: 01/22/24 13:53 TS [id number]) PT Summary Assessment and Plan Potential Rehabilitation Potential Good Summary Impairments Pain,ROM,Strength,Balance, Coordination,Sensation,Tone, Cognition,Bed Mobility, Transfers,Gait,Activity Tolerance Progress Towards Goals Progressing Toward Goals Assessment Summary Bishop is making progress with his mobility but is limited by orthostatic hypotension(see vitals above). He is SBA for all bed mobility and demonstrates good awareness of his precautions. He is SBA for STS and for gait ~60' in room with FWW. He progressed to stairs x3 CGA from spouse and therapist with COUNTER INTELLIGENCE. PT is recommending home with assist and outpatient PT when medically stable. Goals Bed Mobility Goal Independent Transfer Goal Independent,Front Wheeled Walker Gait Goal Independent,Front Wheel Walker Gait Distance 300 Other Goals up/down 3 steps using SPC/COUNTER INTELLIGENCE CGA Days to Meet Goals 5 Frequency of Treatment Frequency Of Treatment Twice a Day Treatment Plan Physical Therapy Treatment Plan Bed Mobility Training,Transfer Training,Gait Training, Therapeutic Exercise,Balance Retraining,Post Op Education, Discharge Planning,Hot or Cold Pack,Neuromuscular Re-ed, Coordination Retraining,Manual Therapy Precautions Anterior Hip Precautions No Hip Extension,No Hip External Rotation Weight Bearing Status Weight Bearing Status Weight Bear as Tolerated Allowed Weight Bearing Amount (enter % BLE WBAT or #) (%) Recommendations To Nursing Amount of Assist Needed 1 Person Assist Discharge Recommendations PT Discharge Recommendations Home with Assistance, Outpatient PT Transportation Needs at Discharge Private Vehicle
--- NOTE | 2024-01-22 13:58 | CM.DANOTE ---
Initial DCP Assessment Note Pt is a 38yo male, resident of [place], now POD#1 from bilateral KIMBERLY by Dr Scanlon PCP: Shemar Alvarado Payer: [facility] Reviewed chart, pt discussed in multidisciplinary rounds this morning. Therapy has cleared pt for return home w/family to assist and pt has planned for home, DC order from Ortho has already been initiated this morning. No barriers identified at this time to patient's safe discharge home w/family to assist; close outpatient f/u recommended. CM team will plan to follow closely in case any DC needs or concerns arise. BRANDON Ferris Discharge Planning/Care Management CM Discharge Assessment Start: 01/22/24 13:56 Freq: Status: Active Protocol: Document 01/22/24 13:56 ELIAZAR (Rec: 01/22/24 13:57 ELIAZAR [id number]) Discharge Planning Assessment Assigned Communication Equipment Repairer BRANDNO Brumfield DPOA/Assigned Designee Name Lia Rowley, spouse Contact Information [phone] Advance Directives? No History Provided By Patient,Medical Record Prior Living Arrangements House Household Members spouse Type of transporation used prior to Drives own vehicle admit Independent with ADL's Yes Is patient alert and oriented? Yes Patient/Family Preference OP PT Therapy Barriers to Discharge No Discharge Plan Home Transportation Arrangement Family Referrals Initiated None needed
[2024-01-22] MEDS: ALBUMIN HUMAN 25 GM/100 ML VIAL IV (14:12)
[2024-01-22] MEDS: TRAMADOL 50 MG TABLET PO (14:20)
[2024-01-22] MEDS: LACTATED RINGERS 1,000 ML 1000 ML IV (14:21)
== END 2024-01-22 17:55 | disposition home or self-care (01) ==
LOC: OR 08:40 → AC 14:07
PROVIDERS: PCP Specialist; Referring Provider Orthopaedic Surgery Sports Medicine; Visit Provider Orthopaedic Surgery Adult Reconstructive Orthopaedic Surgery
PROC: (CPT 27130; principal; 2024-01-21 10:45)
DX: M16.0 Bilateral primary osteoarthritis of hip (principal); M87.9 Osteonecrosis, unspecified; Q74.2 Other congenital malformations of lower limb(s), including pelvic girdle
CPT/HCPCS: 27130; 36415; 73502; 73521; 76000; 85014; 85018; 86850; 86900; 86901; 97116; 97162; 97530; C1776; J0690; J1100; J1644; J2250; J2274; J2405; J2704; J3010; P9041